=== PATIENT | male | born 1960 | race African-American/Black ===

== ENCOUNTER 2018-10-10 05:12 | Day surgery (SDC) | payer OTHER ==
[2018-10-10] MEDS ORDERED: ASPIRIN LOW DOS81 M3 PO (10:33)
[2018-10-10] MEDS ORDERED: PROTONIX40 M2 PO (10:33)
[2018-10-10] MEDS ORDERED: COZAAR50 MG PO (10:33)
[2018-10-10] MEDS ORDERED: PRAVACHOL20 MG PO (10:34)
[2018-10-10] MEDS ORDERED: VERAPAMIL HCL240 MG PO (10:34)
[2018-10-10 11:04] VITALS: BP 141/84
== END 2018-10-10 11:30 | DRG 352 ==
LOC: ORM 05:12
PROVIDERS: ATTEND Surgery
PROC: 0YU64JZ Supplement Left Inguinal Region with Synthetic Substitute, Percutaneous Endoscopic Approach (ICD-10-PCS; principal; 2018-10-10)
DX: K40.90 Unilateral inguinal hernia, without obstruction or gangrene, not specified as recurrent (principal); I10 Essential (primary) hypertension
CPT/HCPCS: C1781; C9290; J2710

== ENCOUNTER 2019-02-18 06:52 | Day surgery (SDC) | payer OTHER ==
[~2019-02-18] VITALS: Ht 180.3 cm; Wt 81.6 kg
[~2019-02-18 06:52] MED LIST: ASPIRIN LOW DOS81 M3 PO; COZAAR50 MG PO; PRAVACHOL20 MG PO; PROTONIX40 M2 PO; VERAPAMIL HCL240 MG PO
[2019-02-18 09:36] LABS: BARBITURATES NEGATIVE (NEGATIVE); COCAINE NEGATIVE (NEGATIVE); METHADONE NEGATIVE (NEGATIVE); OXCYCODONE NEGATIVE (NEGATIVE); TETRAHYDROCANNABIONOL NEGATIVE (NEGATIVE); TRICYLIC ANTIDEPRESSANTS NEGATIVE (NEGATIVE)
[2019-02-18 11:48] VITALS: BP 135/73
== END 2019-02-18 12:05 | DRG 465 ==
LOC: ORM 06:52
PROVIDERS: ATTEND Surgery
PROC: 0JBC0ZZ Excision of Pelvic Region Subcutaneous Tissue and Fascia, Open Approach (ICD-10-PCS; principal; 2019-02-18)
DX: M79.89 Other specified soft tissue disorders (principal)